=== PATIENT | female | born 1975 | race Caucasian/White ===

== ENCOUNTER 2017-08-27 08:57 | Inpatient (IN) | payer MEDICAID, OTHER ==
[~2017-08-27] VITALS: Ht 167.6 cm; Wt 71.3 kg
[2017-08-27] MEDS ORDERED: cloNIDine HCL 0.1 MG TAB ONE (09:41)
[2017-08-27] MEDS ORDERED: cloNIDine HCL 0.1 MG TAB PO ONE (09:45)
[2017-08-27 10:42] LABS: Urine Bacteria FEW /hpf (None Seen); Urine Blood 1+ /uL (Negative); Urine Mucus FEW (None Seen); Urine Specific Gravity 1.028 (1.001-1.035); Urine WBC 72 /hpf (0 - 5)
[2017-08-27 11:00] LABS: Basophils # (auto) 0.1 uL; Basophils % (auto) 0.5 % (0.0-2.0); Eosinophils # (auto) 0 uL; Eosinophils % (auto) 0.4 % (0.0-7.0); Hematocrit 44.6 % (36.0-46.0); Lymphocytes # (auto) 0.8 uL; Lymphocytes % (auto) 7.7 % (10.0-50.0); Mean Corpuscular Hemoglobin 20.2 pg (28.0-32.0); Mean Corpuscular Hgb Conc. 29.1 g/dL (32.0-36.0); Mean Corpuscular Volume 69.4 fL (80.0-100.0); Monocytes # (auto) 0.6 uL; Monocytes % (auto) 5.9 % (0.0-12.0); Neutrophils # (auto) 8.7 uL; Neutrophils % (auto) 85.5 % (37.0-80.0); Nucleated Red Blood Cells % 0.2 %; Platelet Count (auto) 303 10^3/uL (140-450); Red Blood Cells 6.43 10^6/uL (4.0-5.20); Red Cell Distribution Width 19.1 % (11.8-14.3); White Blood Cell 10.2 10^3/uL (4.4-10.8)
[2017-08-27 11:00] LABS: Alcohol, Urine < 3.0 mg/dL (0-5); Amphetamine Screen, Urine NEGATIVE (NEGATIVE); Barbiturate Scree,Urine NEGATIVE (NEGATIVE); Benzodiazephine Screen, Urine NEGATIVE (NEGATIVE); Cannabinoid Screen, Urine NEGATIVE (NEGATIVE); Cocaine Screen, Urine NEGATIVE (NEGATIVE); Opiate Scree,Urine POSITIVE (NEGATIVE); Phencyclidine Screen, Urine NEGATIVE (NEGATIVE)
[2017-08-27] MEDS ORDERED: LABETALOL HCL 5 MG/ML ML 20ML VIAL IV ONE (11:00)
[2017-08-27] MEDS ORDERED: FUROSEMIDE 40 MG/4 ML VIAL IV ONE (11:00)
[2017-08-27 11:10] LABS: BUN/Creatinine Ratio 16.9; Bilirubin, Total 0.8 mg/dL (0.2-1.0); Calcium 8.1 mg/dL (8.5-10.1); Potassium 4.2 mmol/L (3.5-5.1); Total Protein 6.4 g/dL (6.4-8.2)
[2017-08-27 11:28] LABS: Magnesium 2.1 mg/dL (1.6-2.6)
[2017-08-27] MEDS ORDERED: NITROGLYCERIN 0.4 MG SL TAB SL PRN (12:45)
[2017-08-27] MEDS ORDERED: ONDANSETRON HCL 4 MG/2 ML VIAL IV PRN (12:45)
[2017-08-27] MEDS ORDERED: MORPHINE SULFATE 10 MG/ML INJ 1ML SDV IV PRN (12:45)
[2017-08-27 13:17] LABS: Cholesterol 159 mg/dL (< 200); HDL Cholesterol 35 mg/dL (40-59); LDL Cholesterol 118 mg/dL (< 100); Triglycerides 99 mg/dL (< 150)
[2017-08-27] MEDS ORDERED: cefTRIAXone 1GM/10ml IVPUSH 10 ML IV ONE (14:30)
[2017-08-27] MEDS ORDERED: hydrALAZINE HCL 20 MG/ML VL IV SCH (18:00)
[2017-08-27] MEDS: FUROSEMIDE 40 MG/4 ML VIAL IV SCH (18:14)
[2017-08-27] MEDS ORDERED: cloNIDine HCL 0.1 MG TAB PO PRN (19:30)
[2017-08-27 20:21] LABS: INR 1.24 (0.9-1.15); Partial Thromboplastin Time 27.1 sec (22.64-33.71); Prothrombin Time 13.6 sec (9.37-12.3)
[2017-08-27 21:30] VITALS: BP 158/101
[2017-08-27] MEDS: POTASSIUM CHL 20 Meq TABLET PO SCH (21:40)
[2017-08-27] MEDS: METOPROLOL TARTRATE 25 MG TAB PO SCH (21:41)
[2017-08-27] MEDS ORDERED: SPIR25TA89 PO (23:32)
[2017-08-28] MEDS: MORPHINE SULFATE 10 MG/ML INJ 1ML SDV IV PRN ×4 (04:33→20:06)
[2017-08-28 05:00] VITALS: BP 145/88
[2017-08-28 05:45] LABS: Basophils # (auto) 0.1 uL; Eosinophils # (auto) 0.1 uL; Hemoglobin 11.4 g/dL (12.2-16.2); Monocytes # (auto) 0.9 uL; Neutrophils # (auto) 7.2 uL; Neutrophils % (auto) 77.4 % (37.0-80.0); Nucleated Red Blood Cells % 0.1 %
[2017-08-28 05:47] LABS: Basophils % (auto) 0.6 % (0.0-2.0); Eosinophils % (auto) 1.3 % (0.0-7.0); Hematocrit 37.4 % (36.0-46.0); Mean Corpuscular Hemoglobin 20.6 pg (28.0-32.0); Mean Corpuscular Hgb Conc. 30.5 g/dL (32.0-36.0); Mean Corpuscular Volume 67.5 fL (80.0-100.0); Monocytes % (auto) 9.7 % (0.0-12.0); Platelet Count (auto) 270 10^3/uL (140-450); Red Blood Cells 5.55 10^6/uL (4.0-5.20); Red Cell Distribution Width 18.7 % (11.8-14.3); White Blood Cell 9.3 10^3/uL (4.4-10.8)
[2017-08-28] MEDS: FUROSEMIDE 40 MG/4 ML VIAL IV SCH ×2 (06:05→17:46)
[2017-08-28 06:19] LABS: BUN/Creatinine Ratio 20.9; Calcium 8.2 mg/dL (8.5-10.1); Potassium 3.7 mmol/L (3.5-5.1)
[2017-08-28 09:00] VITALS: BP 129/83
[2017-08-28] MEDS: POTASSIUM CHL 20 Meq TABLET PO SCH ×2 (09:48→21:23)
[2017-08-28] MEDS: cefTRIAXone 1GM/10ml IVPUSH 10 ML IV SCH (09:48)
[2017-08-28] MEDS: METOPROLOL TARTRATE 25 MG TAB PO SCH ×2 (09:49→21:24)
[2017-08-28] MEDS: ASPirin 81 mg TAB PO SCH (09:50)
[2017-08-28] MEDS ORDERED: ENALAPRIL MALEATE 2.5 MG TAB PO SCH (10:00)
[2017-08-28] MEDS ORDERED: ENALAPRIL MALEATE 2.5 MG TAB PO ONE (11:45)
[2017-08-28 13:00] VITALS: BP 146/93
[2017-08-28 17:00] VITALS: BP 147/91
[2017-08-28 21:38] VITALS: BP 131/92
[2017-08-29] MEDS: MORPHINE SULFATE 10 MG/ML INJ 1ML SDV IV PRN ×3 (03:53→21:24)
[2017-08-29 05:00] VITALS: BP 143/90
[2017-08-29] MEDS: FUROSEMIDE 40 MG/4 ML VIAL IV SCH ×2 (05:48→17:38)
[2017-08-29 07:52] VITALS: BP 149/81
[2017-08-29] MEDS: cefTRIAXone 1GM/10ml IVPUSH 10 ML IV SCH (09:02)
[2017-08-29] MEDS: ASPirin 81 mg TAB PO SCH (09:03)
[2017-08-29] MEDS: POTASSIUM CHL 20 Meq TABLET PO SCH ×2 (09:03→21:17)
[2017-08-29] MEDS: METOPROLOL TARTRATE 25 MG TAB PO SCH ×2 (09:04→21:17)
[2017-08-29] MEDS ORDERED: PNEUMOCOCCAL VACC POLYS 25 MCG/0.5 ML VIAL IM ONE (10:00)
[2017-08-29] MEDS ORDERED: INFLUENZA QUAD 2017-2018 0.5 ML SYRG IM ONE (10:00)
[2017-08-29] MEDS ORDERED: ENALAPRIL MALEATE 10 MG TAB PO SCH (10:00)
[2017-08-29 11:33] VITALS: BP 145/93
[2017-08-29] MEDS ORDERED: ENALAPRIL MALEATE 10 MG TAB PO ONE (12:00)
[2017-08-29 16:15] VITALS: BP 157/103
[2017-08-29] MEDS: hydrALAZINE HCL 20 MG/ML VL IV PRN ×2 (16:31→22:56)
[2017-08-29 22:00] VITALS: BP 143/84
[2017-08-30] VITALS (7 sets, daily range): BP systolic 133–148; BP diastolic 81–93
[2017-08-30] MEDS: FUROSEMIDE 40 MG/4 ML VIAL IV SCH ×2 (06:19→17:41)
[2017-08-30] MEDS: MORPHINE SULFATE 10 MG/ML INJ 1ML SDV IV PRN ×4 (06:19→22:05)
[2017-08-30 07:09] LABS: BUN/Creatinine Ratio 27.7; Calcium 8.3 mg/dL (8.5-10.1); Potassium 3.8 mmol/L (3.5-5.1)
[2017-08-30] MEDS: cefTRIAXone 1GM/10ml IVPUSH 10 ML IV SCH (09:19)
[2017-08-30] MEDS: ENALAPRIL MALEATE 10 MG TAB PO SCH (09:20)
[2017-08-30] MEDS: POTASSIUM CHL 20 Meq TABLET PO SCH ×2 (09:20→20:52)
[2017-08-30] MEDS: METOPROLOL TARTRATE 25 MG TAB PO SCH ×2 (09:21→20:53)
[2017-08-30] MEDS: ASPirin 81 mg TAB PO SCH (09:21)
[2017-08-30] MEDS ORDERED: MORPHINE SULF INJ 2 MG/ML SYRINGE 1ML ONE (21:58)
[2017-08-31] VITALS (7 sets, daily range): BP systolic 147–165; BP diastolic 80–107
[2017-08-31] MEDS: FUROSEMIDE 40 MG/4 ML VIAL IV SCH ×2 (06:47→17:56)
[2017-08-31] MEDS ORDERED: MORPHINE SULF INJ 2 MG/ML SYRINGE 1ML ONE (07:50)
[2017-08-31] MEDS: METOPROLOL TARTRATE 25 MG TAB PO SCH ×2 (09:06→22:43)
[2017-08-31] MEDS: cefTRIAXone 1GM/10ml IVPUSH 10 ML IV SCH (09:06)
[2017-08-31] MEDS: ENALAPRIL MALEATE 10 MG TAB PO SCH (09:07)
[2017-08-31] MEDS: ASPirin 81 mg TAB PO SCH (09:07)
[2017-08-31] MEDS: POTASSIUM CHL 20 Meq TABLET PO SCH ×2 (09:07→22:42)
[2017-08-31] MEDS ORDERED: POTASSIUM CHL 20 Meq TABLET PO ONE (11:45)
[2017-08-31] MEDS ORDERED: FUROSEMIDE 40 MG/4 ML VIAL IV ONE (11:45)
[2017-08-31] MEDS: HYDROcodone-ACET 5/325MG TAB PO PRN (18:10)
[2017-09-01] MEDS: HYDROcodone-ACET 5/325MG TAB PO PRN (04:33)
[2017-09-01 05:00] VITALS: BP 159/92
[2017-09-01] MEDS: FUROSEMIDE 40 MG/4 ML VIAL IV SCH (06:46)
[2017-09-01 07:53] VITALS: BP 161/85
[2017-09-01] MEDS: METOPROLOL TARTRATE 25 MG TAB PO SCH (10:14)
[2017-09-01] MEDS: ASPirin 81 mg TAB PO SCH (10:14)
[2017-09-01] MEDS: POTASSIUM CHL 20 Meq TABLET PO SCH (10:14)
[2017-09-01] MEDS: ENALAPRIL MALEATE 10 MG TAB PO SCH (10:14)
[2017-09-01 13:00] VITALS: BP 151/75
[2017-09-01 13:40] VITALS: BP 129/58
[2017-09-01] MEDS ORDERED: FURO20TA PO (14:07)
[2017-09-01] MEDS ORDERED: POTA20TA53 PO (14:07)
[2017-09-01] MEDS ORDERED: MET25T PO (14:07)
[2017-09-01] MEDS ORDERED: ASPI81CH43 PO (14:07)
[2017-09-01] MEDS ORDERED: ENA10T PO (14:07)
[2017-09-01] MEDS ORDERED: PNEUMOCOCCAL VACC POLYS 25 MCG/0.5 ML VIAL IM ONE (14:15)
[2017-09-01] MEDS ORDERED: INFLUENZA QUAD 2017-2018 0.5 ML SYRG IM ONE (14:15)
== END 2017-09-01 14:25 | disposition home or self-care (01) | DRG 291 ==
LOC: ER 08:57 → TELE 08:58 → TELE-WESTW 20:45 → WEST WING 08-30 12:01
PROVIDERS: ADMIT Internal Medicine; ATTEND Internal Medicine
DX: I11.0 Hypertensive heart disease with heart failure (principal); E43 Unspecified severe protein-calorie malnutrition; I42.0 Dilated cardiomyopathy; N39.0 Urinary tract infection, site not specified; I50.41 Acute combined systolic (congestive) and diastolic (congestive) heart failure; B96.20 Unspecified Escherichia coli [E. coli] as the cause of diseases classified elsewhere; E66.9 Obesity, unspecified; F15.10 Other stimulant abuse, uncomplicated; J44.9 Chronic obstructive pulmonary disease, unspecified; F41.9 Anxiety disorder, unspecified; Z79.82 Long term (current) use of aspirin; Z79.899 Other long term (current) drug therapy; Z68.25 Body mass index [BMI] 25.0-25.9, adult; Z23 Encounter for immunization; Z82.49 Family history of ischemic heart disease and other diseases of the circulatory system; Z82.5 Family history of asthma and other chronic lower respiratory diseases; Z71.51 Drug abuse counseling and surveillance of drug abuser; Z71.6 Tobacco abuse counseling; Z88.0 Allergy status to penicillin; F10.10 Alcohol abuse, uncomplicated; Z87.891 Personal history of nicotine dependence
CPT/HCPCS: 36415; 71045; 80048; 80053; 80061; 80307; 81001; 83735; 83880; 84443; 84484; 84702; 85025; 85610; 85730; 87086; 87088; 87186; 93005; 93306; 93970; 94761; 96374; 96375

== ENCOUNTER 2021-04-15 10:24 | Inpatient (IN) | payer MEDICAID ==
[~2021-04-15] VITALS: Ht 167.6 cm; Wt 76.3 kg
[~2021-04-15 10:24] MED LIST: CAR3125T PO; FURO40TA4 PO; LISI-716 PO
[2021-04-15 11:07] LABS: Hemoglobin 15.2 g/dL (12.2-16.2); Lymphocytes # (auto) 1.5 10 ^3/uL (0.4-5.4); Mean Corpuscular Hemoglobin 25.2 pg (28.0-32.0); Monocytes # (auto) 0.5 10 ^3/uL (0-1.3); Monocytes % (auto) 6.2 % (0.0-12.0); Neutrophils # (auto) 6.1 10 ^3/uL (1.6-8.6)
[2021-04-15 11:09] LABS: Basophils # (auto) 0.1 10 ^3/uL (0-0.2); Basophils % (auto) 1.2 % (0.0-2.0); Eosinophils # (auto) 0.3 10 ^3/uL (0-0.8); Eosinophils % (auto) 2.9 % (0.0-7.0); Hematocrit 46.6 % (36.0-46.0); Lymphocytes % (auto) 18.1 % (10.0-50.0); Mean Corpuscular Hgb Conc. 32.6 g/dL (32.0-36.0); Mean Corpuscular Volume 77.4 fL (80.0-100.0); Neutrophils % (auto) 71.6 % (37.0-80.0); Red Blood Cells 6.02 10^6/uL (4.0-5.20); Red Cell Distribution Width 16.1 % (11.8-14.3); White Blood Cell 8.5 10^3/uL (4.4-10.8)
[2021-04-15] MEDS ORDERED: LABETALOL HCL 5 MG/ML 4ML SYRINGE IV ONE ×2 (11:15→14:45)
[2021-04-15 11:24] LABS: Albumin 3.5 g/dL (3.4-5.0); Calcium 9.1 mg/dL (8.5-10.1); Potassium 3.9 mmol/L (3.5-5.1)
[2021-04-15 11:37] LABS: BUN/Creatinine Ratio 10.6; Bilirubin, Total 0.8 mg/dL (0.2-1.0); Total Protein 7.6 g/dL (6.4-8.2)
[2021-04-15] MEDS ORDERED: cloNIDine HCL 0.1 MG TAB PO ONE (13:00)
[2021-04-15] MEDS ORDERED: hydrALAZINE HCL 20 MG/ML VL IV ONE (16:30)
[2021-04-15 17:11] LABS: Urine Bacteria FEW /hpf (None Seen); Urine Blood 1+ /uL (Negative); Urine Mucus FEW (None Seen); Urine Specific Gravity 1.019 (1.001-1.035); Urine WBC 104 /hpf (0 - 5)
[2021-04-15] MEDS ORDERED: ALBUTEROL SULF 2.5 MG/0.5ML(0.5%) NEB SOLN NEB PRN (18:15)
[2021-04-15] MEDS ORDERED: IPRATROPIUM BROM 0.5 MG/2.5ML INH SOL NEB PRN (18:15)
[2021-04-15] MEDS ORDERED: ONDANSETRON HCL 4 MG/2 ML VIAL IV PRN (18:15)
[2021-04-15] MEDS ORDERED: ACETAMINOPHEN 325 MG RECT SUPP PR PRN (18:15)
[2021-04-15] MEDS ORDERED: MORPHINE SULFATE INJECTION 2 MG/ML SYRG IV PRN ×2 (18:15)
[2021-04-15] MEDS ORDERED: NITROGLYCERIN 0.4 MG SL TAB SL PRN (18:15)
[2021-04-15] MEDS ORDERED: DEXTROSE (50%) 50ML SYRG IV PRN (18:15)
[2021-04-15] MEDS ORDERED: LORazepam 2MG/ML-1ML VIAL IV PRN (18:15)
[2021-04-15] MEDS: SODIUM CHLORIDE 0.9% 1,000 ML IV SCH (19:02)
[2021-04-15] MEDS ORDERED: SODIUM CHLORIDE 0.9% 1,000 ML IV ONE (21:30)
[2021-04-15 22:34] LABS: Cholesterol 296 mg/dL (< 200)
[2021-04-15 22:37] LABS: HDL Cholesterol 40 mg/dL (40-59); LDL Cholesterol 206 mg/dL (< 100); Triglycerides 274 mg/dL (< 150)
[2021-04-15] MEDS: CLINDAMYCIN 300MG IV 50 ML IV SCH (22:59)
[2021-04-15] MEDS: hydrALAZINE HCL 20 MG/ML VL IV PRN (23:00)
[2021-04-16] MEDS: ACCU-CHEK COMFORT CURVE STRIP VI SCH ×5 (01:38→23:49)
[2021-04-16] MEDS: InsuLIN REG 1unit/0.01ml Soln (100units/ml) SC SCH ×5 (01:38→23:50)
[2021-04-16] MEDS: SODIUM CHLORIDE 0.9% 1,000 ML IV SCH (04:15)
[2021-04-16 04:42] LABS: Calcium 8.9 mg/dL (8.5-10.1); Potassium 3.8 mmol/L (3.5-5.1)
[2021-04-16 04:46] LABS: Albumin 3.2 g/dL (3.4-5.0); BUN/Creatinine Ratio 16.2
[2021-04-16 04:47] LABS: Basophils # (auto) 0.1 10 ^3/uL (0-0.2); Eosinophils # (auto) 0.1 10 ^3/uL (0-0.8); Lymphocytes # (auto) 1.4 10 ^3/uL (0.4-5.4); Lymphocytes % (auto) 11.5 % (10.0-50.0); Monocytes # (auto) 0.7 10 ^3/uL (0-1.3); Neutrophils # (auto) 9.6 10 ^3/uL (1.6-8.6)
[2021-04-16 04:49] LABS: Basophils % (auto) 0.7 % (0.0-2.0); Eosinophils % (auto) 1.1 % (0.0-7.0); Hematocrit 43.6 % (36.0-46.0); Hemoglobin 14.2 g/dL (12.2-16.2); Mean Corpuscular Hemoglobin 25.1 pg (28.0-32.0); Mean Corpuscular Hgb Conc. 32.6 g/dL (32.0-36.0); Mean Corpuscular Volume 76.9 fL (80.0-100.0); Monocytes % (auto) 5.6 % (0.0-12.0); Neutrophils % (auto) 81.1 % (37.0-80.0); Red Blood Cells 5.67 10^6/uL (4.0-5.20); Red Cell Distribution Width 16.5 % (11.8-14.3); Total Protein 7.2 g/dL (6.4-8.2); White Blood Cell 11.9 10^3/uL (4.4-10.8)
[2021-04-16 05:19] LABS: INR 1.03 (0.9-1.15)
[2021-04-16] MEDS: CLINDAMYCIN 300MG IV 50 ML IV SCH (06:45)
[2021-04-16] MEDS: ASPirin 81 mg TAB PO SCH (10:00)
[2021-04-16] MEDS ORDERED: ATORVASTATIN 20 MG TAB PO SCH (10:00)
[2021-04-16] MEDS: PANTOPRAZOLE 40 MG/10 ML VIAL INJ IV SCH (10:21)
[2021-04-16] MEDS: hydrALAZINE HCL 20 MG/ML VL IV PRN ×2 (10:22→18:05)
[2021-04-16] MEDS ORDERED: levoFLOXacin 500MG 100 ML IV SCH (11:45)
[2021-04-16] MEDS: amLODIPine BESYLATE 5 MG TAB PO SCH (12:16)
[2021-04-16] MEDS: LISINOPRIL 10 MG TAB PO SCH (12:17)
[2021-04-16] MEDS ORDERED: VANCOMYCIN PER PHARMACY 0 MG IV SCH (13:15)
[2021-04-16] MEDS ORDERED: ACETAMINOPHEN 325 MG RECT SUPP PR PRN (13:15)
[2021-04-16] MEDS ORDERED: VANCOMYCIN 1GM/250ML 250 ML IV ONE ×2 (13:15→16:45)
[2021-04-16] MEDS ORDERED: cefTRIAXone 1GM/50ML D5W 50 ML IV ONE (13:15)
[2021-04-16] MEDS ORDERED: MORPHINE SULFATE INJECTION 2 MG/ML SYRG IV PRN (16:01)
[2021-04-16] MEDS ORDERED: LABETALOL HCL 5 MG/ML 4ML SYRINGE IV ONE (21:15)
[2021-04-16] MEDS: ATORVASTATIN 20 MG TAB PO SCH (22:30)
[2021-04-17] MEDS: VANCOMYCIN 1GM/250ML 250 ML IV SCH ×3 (00:05→16:00)
[2021-04-17] MEDS: hydrALAZINE HCL 20 MG/ML VL IV PRN ×2 (01:01→08:43)
[2021-04-17] MEDS: ACCU-CHEK COMFORT CURVE STRIP VI SCH ×3 (05:53→19:26)
[2021-04-17] MEDS: InsuLIN REG 1unit/0.01ml Soln (100units/ml) SC SCH ×3 (05:54→18:00)
[2021-04-17 06:43] LABS: Basophils # (auto) 0.1 10 ^3/uL (0-0.2); Eosinophils # (auto) 0.2 10 ^3/uL (0-0.8); Hematocrit 42.7 % (36.0-46.0); Hemoglobin 13.8 g/dL (12.2-16.2); Lymphocytes # (auto) 1.5 10 ^3/uL (0.4-5.4); Monocytes # (auto) 0.9 10 ^3/uL (0-1.3); Nucleated Red Blood Cells % 0.1 %; Red Cell Distribution Width 16.6 % (11.8-14.3)
[2021-04-17 06:45] LABS: Basophils % (auto) 0.7 % (0.0-2.0); Eosinophils % (auto) 1.4 % (0.0-7.0); Lymphocytes % (auto) 11.4 % (10.0-50.0); Mean Corpuscular Hgb Conc. 32.3 g/dL (32.0-36.0); Mean Corpuscular Volume 77.2 fL (80.0-100.0); Neutrophils # (auto) 10.5 10 ^3/uL (1.6-8.6); Neutrophils % (auto) 79.5 % (37.0-80.0); Red Blood Cells 5.53 10^6/uL (4.0-5.20); White Blood Cell 13.3 10^3/uL (4.4-10.8)
[2021-04-17 07:00] LABS: Potassium 4.1 mmol/L (3.5-5.1)
[2021-04-17 07:04] LABS: BUN/Creatinine Ratio 18.9; Calcium 8.9 mg/dL (8.5-10.1)
[2021-04-17] MEDS: cefTRIAXone 1GM/50ML D5W 50 ML IV SCH (08:30)
[2021-04-17] MEDS: ASPirin 81 mg TAB PO SCH (09:12)
[2021-04-17] MEDS: PANTOPRAZOLE 40 MG/10 ML VIAL INJ IV SCH (09:12)
[2021-04-17] MEDS: amLODIPine BESYLATE 5 MG TAB PO SCH (09:12)
[2021-04-17] MEDS: LISINOPRIL 10 MG TAB PO SCH (09:12)
[2021-04-17] MEDS: ENOXAPARIN SOD 40 MG/0.4 ML SYRINGE SC SCH (09:12)
[2021-04-17] MEDS ORDERED: MORPHINE SULFATE 4 MG/ML SYR/VIAL IV PRN (11:15)
[2021-04-17] MEDS ORDERED: MORPHINE SULFATE INJECTION 2 MG/ML SYRG IV PRN (11:15)
[2021-04-17] MEDS: METOPROLOL TARTRATE 25 MG TAB PO SCH ×2 (11:35→22:00)
[2021-04-17 18:38] VITALS: BP 150/76
[2021-04-17 20:00] VITALS: BP 134/85
[2021-04-17] MEDS: ATORVASTATIN 20 MG TAB PO SCH (22:00)
[2021-04-17 23:47] VITALS: BP 154/85
[2021-04-18] MEDS: ACCU-CHEK COMFORT CURVE STRIP VI SCH ×5 (00:23→22:49)
[2021-04-18] MEDS: hydrALAZINE HCL 20 MG/ML VL IV PRN (00:40)
[2021-04-18] MEDS ORDERED: VANCOMYCIN 1GM/250ML 250 ML IV SCH (04:00)
[2021-04-18 05:29] VITALS: BP 126/71
[2021-04-18 05:53] LABS: Basophils # (auto) 0.1 10 ^3/uL (0-0.2); Eosinophils # (auto) 0.3 10 ^3/uL (0-0.8); Lymphocytes # (auto) 1.5 10 ^3/uL (0.4-5.4)
[2021-04-18 05:56] LABS: Basophils % (auto) 0.7 % (0.0-2.0); Eosinophils % (auto) 2.7 % (0.0-7.0); Hematocrit 45.1 % (36.0-46.0); Hemoglobin 14.4 g/dL (12.2-16.2); Lymphocytes % (auto) 12.5 % (10.0-50.0); Mean Corpuscular Hemoglobin 24.9 pg (28.0-32.0); Mean Corpuscular Volume 77.7 fL (80.0-100.0); Monocytes % (auto) 8.2 % (0.0-12.0); Neutrophils % (auto) 75.9 % (37.0-80.0); Red Cell Distribution Width 16.6 % (11.8-14.3); White Blood Cell 11.9 10^3/uL (4.4-10.8)
[2021-04-18] MEDS: InsuLIN REG 1unit/0.01ml Soln (100units/ml) SC SCH ×5 (06:00→22:49)
[2021-04-18 06:33] LABS: BUN/Creatinine Ratio 18.1; Calcium 8.9 mg/dL (8.5-10.1); Potassium 3.8 mmol/L (3.5-5.1)
[2021-04-18 09:00] VITALS: BP 127/82
[2021-04-18] MEDS: cefTRIAXone 1GM/50ML D5W 50 ML IV SCH (09:38)
[2021-04-18] MEDS: PANTOPRAZOLE 40 MG/10 ML VIAL INJ IV SCH (09:38)
[2021-04-18] MEDS: ASPirin 81 mg TAB PO SCH (09:38)
[2021-04-18] MEDS: LISINOPRIL 10 MG TAB PO SCH (09:39)
[2021-04-18] MEDS: METOPROLOL TARTRATE 25 MG TAB PO SCH ×2 (09:41→22:26)
[2021-04-18] MEDS: amLODIPine BESYLATE 5 MG TAB PO SCH (09:41)
[2021-04-18] MEDS: ENOXAPARIN SOD 40 MG/0.4 ML SYRINGE SC SCH (09:42)
[2021-04-18] MEDS: HYDROcodone-ACET 5/325MG TAB PO PRN (09:42)
[2021-04-18 13:00] VITALS: BP 134/84
[2021-04-18 17:00] VITALS: BP 127/60
[2021-04-18] MEDS: levoFLOXacin 500 MG TAB PO SCH (18:17)
[2021-04-18 22:00] VITALS: BP 137/80
[2021-04-18] MEDS: ATORVASTATIN 20 MG TAB PO SCH (22:25)
[2021-04-19 05:00] VITALS: BP 152/71
[2021-04-19] MEDS: ACCU-CHEK COMFORT CURVE STRIP VI SCH ×5 (06:08→23:37)
[2021-04-19] MEDS: InsuLIN REG 1unit/0.01ml Soln (100units/ml) SC SCH ×4 (06:09→23:44)
[2021-04-19] MEDS: hydrALAZINE HCL 20 MG/ML VL IV PRN (06:20)
[2021-04-19 09:00] VITALS: BP 139/75
[2021-04-19] MEDS: ASPirin 81 mg TAB PO SCH (10:04)
[2021-04-19] MEDS: levoFLOXacin 500 MG TAB PO SCH (10:05)
[2021-04-19] MEDS: LISINOPRIL 10 MG TAB PO SCH (10:06)
[2021-04-19] MEDS: amLODIPine BESYLATE 5 MG TAB PO SCH (10:07)
[2021-04-19] MEDS: METOPROLOL TARTRATE 25 MG TAB PO SCH ×2 (10:08→21:58)
[2021-04-19] MEDS: PANTOPRAZOLE 40 MG/10 ML VIAL INJ IV SCH (10:09)
[2021-04-19] MEDS: ENOXAPARIN SOD 60 MG/0.6 ML SYRINGE SC SCH (10:17)
[2021-04-19 13:00] VITALS: BP 134/79
[2021-04-19 14:54] VITALS: BP 134/79
[2021-04-19 17:00] VITALS: BP 137/77
[2021-04-19] MEDS: HYDROcodone-ACET 5/325MG TAB PO PRN (17:48)
[2021-04-19] MEDS: ATORVASTATIN 20 MG TAB PO SCH (21:57)
[2021-04-19 22:00] VITALS: BP 132/74
[2021-04-20 05:00] VITALS: BP 151/86
[2021-04-20] MEDS: InsuLIN REG 1unit/0.01ml Soln (100units/ml) SC SCH ×3 (05:21→18:00)
[2021-04-20] MEDS: hydrALAZINE HCL 20 MG/ML VL IV PRN (06:38)
[2021-04-20 09:00] VITALS: BP 124/72
[2021-04-20] MEDS: HYDROcodone-ACET 5/325MG TAB PO PRN (09:18)
[2021-04-20] MEDS ORDERED: LISINOPRIL 10 MG TAB PO SCH (10:00)
[2021-04-20 10:10] VITALS: BP 124/72
[2021-04-20] MEDS: ASPirin 81 mg TAB PO SCH (11:13)
[2021-04-20] MEDS: METOPROLOL TARTRATE 25 MG TAB PO SCH (11:14)
[2021-04-20] MEDS: levoFLOXacin 500 MG TAB PO SCH (11:14)
[2021-04-20] MEDS: amLODIPine BESYLATE 5 MG TAB PO SCH (11:15)
[2021-04-20] MEDS: ENOXAPARIN SOD 60 MG/0.6 ML SYRINGE SC SCH (11:18)
[2021-04-20] MEDS: ACCU-CHEK COMFORT CURVE STRIP VI SCH ×2 (12:25→18:00)
[2021-04-20 13:00] VITALS: BP 130/68
[2021-04-20 13:01] VITALS: BP 130/68
[2021-04-20 17:00] VITALS: BP 138/73
== END 2021-04-20 19:20 | DRG 45 ==
LOC: ER 10:24 → EDBD 10:24 → OVERFLOW 18:08 → TELE-CENTR 04-17 18:10
PROVIDERS: ADMIT Family Medicine; ATTEND Internal Medicine
DX: I63.9 Cerebral infarction, unspecified (principal); I11.0 Hypertensive heart disease with heart failure; G81.94 Hemiplegia, unspecified affecting left nondominant side; I50.9 Heart failure, unspecified; I16.1 Hypertensive emergency; N39.0 Urinary tract infection, site not specified; R73.9 Hyperglycemia, unspecified; G47.10 Hypersomnia, unspecified; D72.829 Elevated white blood cell count, unspecified; J44.9 Chronic obstructive pulmonary disease, unspecified; F41.9 Anxiety disorder, unspecified; Z91.19 Patient's noncompliance with other medical treatment and regimen; Z20.822 Contact with and (suspected) exposure to COVID-19; B96.1 Klebsiella pneumoniae [K. pneumoniae] as the cause of diseases classified elsewhere; F17.210 Nicotine dependence, cigarettes, uncomplicated; R47.1 Dysarthria and anarthria; R29.810 Facial weakness; Z53.20 Procedure and treatment not carried out because of patient's decision for unspecified reasons; Z75.1 Person awaiting admission to adequate facility elsewhere; Z79.82 Long term (current) use of aspirin; Z79.899 Other long term (current) drug therapy; Z82.49 Family history of ischemic heart disease and other diseases of the circulatory system; Z82.5 Family history of asthma and other chronic lower respiratory diseases; Z86.73 Personal history of transient ischemic attack (TIA), and cerebral infarction without residual deficits; Z88.0 Allergy status to penicillin
CPT/HCPCS: 36415; 70450; 70551; 70553; 71045; 80048; 80053; 80061; 80202; 81001; 82962; 83036; 83520; 84443; 85025; 85610; 85652; 86038; 86160; 86256; 87086; 87088; 87186; 87426; 92610; 93005; 93306; 93886; 96365; 96366; 96367; 96372; 96375; 96376; 97110; 97163; 97530; 99291; C9113; G0378; J0696; J1815; J1956; J3490